=== PATIENT | female | born 1945 | race American Indian/Alaskan Native ===

== ENCOUNTER 2017-07-07 09:55 | Outpatient (CLI) | payer MEDICARE ==
--- NOTE | 2017-07-07 11:14 | XRay Report ---
Right shoulder 3 views: History: Shoulder pain. Findings: Arthritic changes are noted the a.c. joint and inferior aspect of glenohumeral joint. The acromiohumeral space appears normal. No soft tissue calcification. Impression: Arthritic changes a.c. joint and glenohumeral joint
--- NOTE | 2017-07-08 08:48 | XRay Report ---
Cervical spine: Pain. Degenerative spondylosis is present from the inferior margin of C2-C7. Posterior spurring is identified at C5-6. There is mild narrowing of the C5-6 and C6-7 interspaces. The vertebral height and alignment are maintained. No prevertebral swelling. Impressions: Degenerative bone and disc changes most prevalent from C5-C7.
== END 2017-07-07 09:56 | disposition home or self-care (01) ==
LOC: SPVIMAG 09:55
DX: M47.892 Other spondylosis, cervical region (principal); M19.011 Primary osteoarthritis, right shoulder; I10 Essential (primary) hypertension; E78.00 Pure hypercholesterolemia, unspecified; Z87.891 Personal history of nicotine dependence
CPT/HCPCS: 72040

== ENCOUNTER 2017-07-19 09:24 | Outpatient (CLI) | payer MEDICARE ==
--- NOTE | 2017-07-19 10:15 | Mammography Report ---
BILATERAL DIGITAL DIAGNOSTIC MAMMOGRAM WITH CAD : 07/19/17 09:24:00 CLINICAL: Breast cancer survivor status post left partial mastectomy , radiation therapy and chemotherapy. Previous right benign biopsy. COMPARISON:07/19/16 [facility], [place], [place] FINDINGS: The breasts are heterogeneously dense, which may obscures small masses. Stable central retroareolar left postsurgical scar. No mass, suspicious architectural distortion or suspicious calcifications. IMPRESSION: No mammographic evidence of malignancy. BI-RADS CATEGORY: 2 -- Benign RECOMMENDATION: Routine mammographic screening in one year. COMMENT: Patient follow-up letters are generated via our [employer] application.
== END 2017-07-19 09:25 | disposition home or self-care (01) ==
LOC: SPVWC 09:24
PROVIDERS: ATTEND Surgery
DX: R92.8 Other abnormal and inconclusive findings on diagnostic imaging of breast (principal); I10 Essential (primary) hypertension; E78.00 Pure hypercholesterolemia, unspecified; Z90.12 Acquired absence of left breast and nipple; Z87.891 Personal history of nicotine dependence
CPT/HCPCS: 77066; G0204

== ENCOUNTER 2021-01-22 09:37 | Outpatient (CLI) | payer MEDICARE ==
--- NOTE | 2021-01-22 11:17 | Mammography Report ---
DIGITAL DIAGNOSTIC MAMMOGRAM WITH CAD , 01/22/2021 CLINICAL INFORMATION / INDICATION: Patient is complaining of right breast pain as well as left nipple inversion. TECHNIQUE: Digital bilateral mammographic imaging was performed. This examination was interpreted with the benefit of Computer-aided Detection analysis. COMPARISON: Prior outside mammograms including 01/21/2020, 07/19/2017 and 07/17/2015. FINDINGS: Breast Density: The breasts are heterogeneously dense, which may obscure small masses. No dominant mass, suspicious calcifications or architectural distortion in either breast. A postsurgi alexis scar is present in the upper inner quadrant of the right breast. The appearance of the right [address] is unchanged from 2017 mammogram. No mammographic correlate for right breast pain is identified. There is postsurgical scar in the left central breast unchanged from 2017 mammogram. Although the pat ient denies any history of left breast surgery, there was clearly left breast excisional biopsy perfo rmed between the 2015 mammogram and the 2017 mammogram. On the 2015 mammogram, a biopsy clip is prese nt in the subareolar left breast. On the 2017 mammogram, the biopsy clip is no longer present and the re has been obvious removal of central breast tissue. The appearance of the left mammogram today is u nchanged from the 2017 mammogram. There is mammographic evidence of left nipple inversion which mammo graphically is unchanged since the 2017 exam. IMPRESSION: 1.No mammographic evidence of malignancy. 2. No mammographic correlate for the complaint of right breast pain. Clinical correlation as to wheth er patient needs right breast ultrasound for further evaluation of breast pain. 3. Left nipple inversion and left breast postsurgical scar appear unchanged from 2017 mammogram. Plea se correlate clinically as to whether further imaging with ultrasound should be performed. Follow up recommendation: Clinical correlation. BI-RADS Category 2: Benign. A "normal" or negative report should not discourage follow up or biopsy of a clinically significant f inding. A written summary of these findings will be mailed to the patient. The patient will be entered into a mammography reporting system which will generate a reminder letter for the patient's next appointmen t at the appropriate interval. According to the [employer], yearly mammograms are recommended starting at age 40 and continuing as long as a woman is in good health. Breast MRI is recommended for women with an kaylan roximately 20-25% or greater lifetime risk of breast cancer, including women with a strong family his tory of breast or ovarian cancer and women who have been treated for Hodgkin's disease. Signer Name: Lizzie Browning MD Signed: 01/22/2021 11:13 AM Workstation Name: [id number]
== END 2021-01-22 09:38 | disposition home or self-care (01) ==
LOC: SPVWC 09:37
PROVIDERS: ATTEND Surgery
DX: R92.8 Other abnormal and inconclusive findings on diagnostic imaging of breast (principal); N64.89 Other specified disorders of breast
CPT/HCPCS: 77066

== ENCOUNTER 2022-06-02 09:05 | Outpatient (CLI) | payer MEDICARE ==
[2022-06-02 12:28] LABS: Basophils % (Auto) 0.5 % (0.0-1.8); Eosinophils % (Auto) 0.5 % (0.0-4.3); Hematocrit 32.8 % (30.3-42.9); Hemoglobin 10.5 gm/dl (10.1-14.3); Lymphocytes # (Auto) 1.1 K/mm3 (1.2-5.4); Lymphocytes % (Auto) 22.7 % (13.4-35.0); Mean Corpuscular HGB Conc 32 % (30-34); Mean Corpuscular Volume 85 fl (79-97); Monocytes # (Auto) 0.6 K/mm3 (0.0-0.8); Monocytes % (Auto) 11.7 % (0.0-7.3); Platelet Count 171 K/mm3 (140-440); Red Blood Count 3.89 M/mm3 (3.65-5.03); Red Cell Distribution Width 17.8 % (13.2-15.2)
[2022-06-02 12:46] LABS: BUN/Creatinine Ratio 15; Blood Urea Nitrogen 15 mg/dL (7-17); Calcium 10.1 mg/dL (8.4-10.2); Hemolysis Index 6; Iron 27 ug/dL (37-170)
== END 2022-06-02 09:06 | disposition home or self-care (01) ==
LOC: LABHHL 09:05
PROVIDERS: ATTEND Internal Medicine
DX: D64.9 Anemia, unspecified (principal); N28.9 Disorder of kidney and ureter, unspecified
CPT/HCPCS: 36415; 80048; 82728; 83540; 85025